=== PATIENT | male | born 1985 | race Caucasian/White ===

== ENCOUNTER 2021-04-29 08:15 | Emergency (ER) | payer SELFPAY ==
[~2021-04-29] VITALS: Ht 175.3 cm; Wt 83.9 kg
[2021-04-29 08:22] VITALS: BP_SYST 112
--- NOTE | 2021-04-29 08:22 | NUR ---
Patient to ER bed H1 to gown for evaluation. Side rails up.
--- NOTE | 2021-04-29 08:23 | NUR ---
Pt brought by Ramírez [id number], pt presents to ER for medical clearance, states he has abscess in the jaw, afebrile, skin pink and warm, VSS.
--- NOTE | 2021-04-29 08:28 | NUR ---
Dr Gan evaluating patient at bedside
[2021-04-29] MEDS ORDERED: AMOX500C2 PO (08:35)
[2021-04-29] MEDS ORDERED: AMOXICILLIN 500 MG CAPSULE PO ONE (08:45)
--- NOTE | 2021-04-29 08:46 | NUR ---
Patient given written and verbal discharge instructions and verbalizes understanding. ER MD discussed with patient the results and treatment provided. Patient in stable condition. ID arm band removed. Rx of Amoxicillin given. Patient educated on pain management and to follow up with PMD. Pain Scale 0/10. Opportunity for questions provided and answered. Medication side effect fact sheet provided.
[2021-04-29 08:47] VITALS: BP_SYST 112
== END 2021-04-29 08:46 ==
LOC: SED 08:15
DX: K04.7 Periapical abscess without sinus (principal); Z79.899 Other long term (current) drug therapy
CPT/HCPCS: 99283

== ENCOUNTER 2022-11-07 11:51 | Emergency (ER) | payer MEDICAID ==
[~2022-11-07] VITALS: Ht 167.6 cm; Wt 63.5 kg
[~2022-11-07 11:51] MED LIST: AMOX500C2 PO
[2022-11-07 11:56] VITALS: BP_SYST 125; PULSE 85; RESP 18; TEMP 98.3; O2SAT 95
[2022-11-07] MEDS ORDERED: DIPHTH,PERTUSS(ACELL),TET VAC 0.5 ML VIAL (Tdap) I.M. ONE (12:30)
[2022-11-07] MEDS ORDERED: CEPH-548 PO (12:32)
[2022-11-07 12:40] VITALS: BP_SYST 120; PULSE 85; RESP 18; TEMP 98.3; O2SAT 95
== END 2022-11-07 12:41 | disposition home or self-care (01) ==
LOC: SED 11:51
DX: S61.412A Laceration without foreign body of left hand, initial encounter (principal); Z79.899 Other long term (current) drug therapy; W26.0XXA Contact with knife, initial encounter; Y93.89 Activity, other specified; Y92.89 Other specified places as the place of occurrence of the external cause; Y99.8 Other external cause status
CPT/HCPCS: 90715; 99283